=== PATIENT | female | born 1980 | race Caucasian/White ===

== ENCOUNTER 2017-10-22 10:36 | Emergency (ER) | payer OTHER ==
[~2017-10-22] VITALS: Ht 165.1 cm; Wt 72.6 kg
[~2017-10-22 10:36] MED LIST: AZITHROMYCIN 2250 MG PO; CITRANATAL B-C1 EAC1 PO; FOLIC ACID0.4 MG PO; GENTAMICIN OPH3.5 G1 OPHTHALMIC; PENICILLIN VK250 MG PO; ZANTAC 150MG T150 MG PO
[2017-10-22 10:43] VITALS: BP 114/73
[2017-10-22] MEDS ORDERED: ZPAK PO (10:58)
[2017-10-22] MEDS ORDERED: OSELB75 PO (10:58)
[2017-10-22 11:10] LABS: INFLUENZA B ANTIGEN None Detected (None Detect)
== END 2017-10-22 11:07 | disposition home or self-care (01) ==
LOC: M.ERS 10:36
PROVIDERS: Physician Assistant
DX: J11.1 Influenza due to unidentified influenza virus with other respiratory manifestations (principal); J20.9 Acute bronchitis, unspecified; F17.210 Nicotine dependence, cigarettes, uncomplicated; Z87.440 Personal history of urinary (tract) infections; Z98.890 Other specified postprocedural states